=== PATIENT | female | born 1945 | race Asian ===

== ENCOUNTER 2019-05-15 14:41 | Emergency (ER) | payer OTHER ==
[~2019-05-15] VITALS: Ht 142.2 cm; Wt 54.5 kg
[~2019-05-15 14:41] MED LIST: AMLO2.5T4 PO; ASPI-728 PO; ATOR10TA84 PO; CHOL400T56 PO; HYDR-1475 PO; LEVO25TA9 PO; LISI-660 PO; METO25 PO; OMEG-12 PO; OMEP10 PO; OS500 PO
[2019-05-15] MEDS ORDERED: MACR100 PO (14:46)
[2019-05-15] MEDS ORDERED: METH-372 PO (14:56)
[2019-05-15] MEDS ORDERED: KDUR10 PO (14:56)
[2019-05-15] MEDS ORDERED: CHL25 PO (14:56)
[2019-05-15] MEDS ORDERED: ALBU8HFA IH (14:56)
[2019-05-15] MEDS ORDERED: VALS160T2 PO (14:56)
[2019-05-15] MEDS ORDERED: BECL10.62 IH (14:56)
[2019-05-15] MEDS ORDERED: LORA10TA7 PO (14:56)
[2019-05-15 15:12] LABS: BASOPHILS % (AUTO) 1.4 % (0.0-2.0); EOSINOPHILS % (AUTO) 2.4 % (1.0-6.0); HEMATOCRIT 41.5 % (36-46); HEMOGLOBIN 13.5 g/dL (12.0-16.0); LYMPHOCYTES # (AUTO) 2.3 K/uL (1.0-4.8); LYMPHOCYTES % (AUTO) 25.2 % (22.0-44.0); MEAN CORPUSCULAR HEMOGLOBIN 28.2 pg (26.0-34.0); MEAN CORPUSCULAR HGB CONC 32.5 G/dL (31.0-37.0); MEAN CORPUSCULAR VOLUME 87 fL (80-100); MONOCYTES # (AUTO) 0.6 K/uL (0.1-1.0); MONOCYTES % (AUTO) 6.5 % (2.0-9.0); NEUTROPHILS # (AUTO) 5.9 K/uL (1.8-7.7); NEUTROPHILS % (AUTO) 64.5 % (40.0-70.0); PLATELET COUNT (AUTO) 303 K/uL (150-450); RED BLOOD CELL COUNT(AUTO) 4.77 MIL/uL (4.00-5.20)
[2019-05-15 15:21] LABS: CALCIUM, TOTAL 8.8 mg/dL (8.8-10.5); CREATININE 1.04 mg/dL (0.60-1.30); POTASSIUM 3.9 mmol/L (3.5-5.1)
[2019-05-15 15:28] LABS: ALBUMIN 3.7 g/dL (3.4-5.0); BILIRUBIN,TOTAL 0.2 mg/dL (0.1-1.0); TOTAL PROTEIN, SERUM 7.5 g/dL (6.4-8.2)
[2019-05-15] MEDS ORDERED: IBUPROFEN 600 MG TABLET PO ONE (18:45)
[2019-05-15 20:05] VITALS: BP 151/91
== END 2019-05-15 20:13 | disposition home or self-care (01) ==
LOC: EMS 14:42
DX: R07.9 Chest pain, unspecified (principal); M53.3 Sacrococcygeal disorders, not elsewhere classified; M25.551 Pain in right hip; M25.552 Pain in left hip; I10 Essential (primary) hypertension; E78.00 Pure hypercholesterolemia, unspecified; Z88.1 Allergy status to other antibiotic agents; Z88.8 Allergy status to other drugs, medicaments and biological substances; Z79.82 Long term (current) use of aspirin
CPT/HCPCS: 72170; 93005

== ENCOUNTER 2019-05-28 12:40 | Emergency (ER) | payer OTHER ==
[~2019-05-28] VITALS: Ht 137.2 cm; Wt 54.5 kg
[~2019-05-28 12:40] MED LIST changes: +ALBU8HFA IH; -AMLO2.5T4 PO; +BECL10.62 IH; +CHL25 PO; -HYDR-1475 PO; +KDUR10 PO; -LISI-660 PO; +LORA10TA7 PO; +METH-372 PO; -METO25 PO; +VALS160T2 PO
[2019-05-28] MEDS ORDERED: KETOROLAC TROMETHAMINE 30 MG/ML VIAL IM ONE (14:45)
[2019-05-28] MEDS ORDERED: ASPI-1111 PO (14:52)
[2019-05-28] MEDS ORDERED: ATOR20TA86 PO (14:52)
[2019-05-28] MEDS ORDERED: CHOL100018 PO (14:52)
[2019-05-28] MEDS ORDERED: LEVO88TA4 PO (14:52)
[2019-05-28] MEDS ORDERED: TOPI25 PO (14:52)
[2019-05-28] MEDS ORDERED: OMEP20 PO (14:52)
[2019-05-28 15:12] VITALS: BP 121/76
== END 2019-05-28 15:29 | disposition home or self-care (01) ==
LOC: EMS 12:43
DX: S46.811A Strain of other muscles, fascia and tendons at shoulder and upper arm level, right arm, initial encounter (principal); I10 Essential (primary) hypertension; Z90.49 Acquired absence of other specified parts of digestive tract; Z98.51 Tubal ligation status; Z95.5 Presence of coronary angioplasty implant and graft; Z79.899 Other long term (current) drug therapy; Z98.890 Other specified postprocedural states; Z88.6 Allergy status to analgesic agent; Z88.1 Allergy status to other antibiotic agents; Z88.8 Allergy status to other drugs, medicaments and biological substances; X50.3XXA Overexertion from repetitive movements, initial encounter; Y93.E9 Activity, other interior property and clothing maintenance; Y92.89 Other specified places as the place of occurrence of the external cause; Y99.8 Other external cause status
CPT/HCPCS: 73030; 96372; 99283; J1885